=== PATIENT | male | born 1955 | race Caucasian/White ===

== ENCOUNTER 2022-12-24 17:12 | Outpatient (CLI) | payer MEDICARE, SELFPAY ==
[2022-12-24 17:08] LABS: Abs Immature Grans 0.04 10^3/uL (0.0-0.06); Absolute Basophil Count 0.04 10^3/uL (0.0-0.2); Absolute Eosinophil Count 0.11 10^3/uL (0.0-0.7); Absolute Lymphocyte Count 1.84 10^3/uL (1.2-3.4); Absolute Monocyte Count 0.93 10^3/uL (0.1-0.8); Absolute Neutrophil Count 6.56 10^3/uL (1.2-6.7); Basophils % 0.4; Eosinophils % 1.2; HGB 15.9 g/dL (13.5-17.5); Immature Grans % 0.4; Lymphocytes % 19.3; MCH 29.6 pg (27.0-33.0); MCHC 34.6 % (32.0-36.0); MCV 86 fL (80-95); MPV 9.2 fL (8.0-11.0); Monocytes % 9.8; Neutrophils % 68.9; Platelet Count 239 10^3/uL (130-400); RBC 5.38 10^6/uL (4.36-5.78); RDW 12.6 % (11.8-14.1); RDW-SD 38.7 fL; WBC 9.52 10^3/uL (4.4-10.8)
[2022-12-24 17:37] LABS: ALT 44 U/L (16-63); AST 33 U/L (15-37); Albumin 4.2 g/dL (3.4-5.0); Alkaline Phosphatase 82 U/L (46-116); Anion Gap 8.7 mmol/L (3-11); BUN 20 mg/dL (7-18); Bilirubin, Total 0.6 mg/dL (0.2-1.0); CO2 25.3 mmol/L (21.0-32.0); CREATININE 1.3 mg/dL (0.70-1.30); Calcium 9.4 mg/dL (8.5-10.1); Chloride 106 mmol/L (98-107); Estimated GFR 59.84 (mL/min/1.73m2); Glucose 104 mg/dL (74-106); Potassium 3.9 mmol/L (3.5-5.1); Sodium 140 mmol/L (136-145); Total Protein 7.8 g/dL (6.4-8.2)
== END 2022-12-24 17:13 | disposition home or self-care (01) ==
LOC: LBO 17:12
PROVIDERS: Visit Provider Physician Assistant Medical
DX: M54.50 Low back pain, unspecified (principal); M79.604 Pain in right leg
CPT/HCPCS: 36415; 80053; 85025

== ENCOUNTER 2022-12-24 17:13 | Outpatient (CLI) | payer MEDICARE, SELFPAY ==
--- NOTE | 2022-12-24 | DI.RAD_ITS ---
Exam(s) XR LUMBAR SPINE COMPLETE EXAM: XR LUMBAR SPINE COMPLETE CLINICAL HISTORY: LOW BACK PAIN M54.50. TECHNIQUE: 2D digital imaging was performed of the lumbar spine. Five images were obtained. AP, la teral, right oblique, left oblique and L5-S1 spot views were obtained. COMPARISON: No exams were available for comparison FINDINGS: BONES: No fracture or destructive lesion. There are anterior osteophytes seen at multiple levels incl uding a bridging osteophyte seen anteriorly at L1-L2. No facet hypertrophy identified. There is a tra nsitional lumbosacral vertebral body. DISKS: The disc heights are well maintained. ALIGNMENT: Lumbar spinal alignment is within normal limits. No spondylolysis or spondylolisthesis. SOFT TISSUE: Normal. IMPRESSION: 1. 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 2. No acute abnormality. DATA REPOSITORY: RADIATION DOSE DELIVERED:
--- NOTE | 2022-12-24 17:41 | DI.VRAD_ITS ---
PROCEDURE INFORMATION: Exam: XR Lumbosacral Spine Exam date and time: 12/24/2022 17:05 Age: 67 years old Clinical indication: Other: Low back pain TECHNIQUE: Imaging protocol: Radiologic exam of the lumbosacral spine. Views: 4 or 5 views. COMPARISON: No relevant prior studies available. FINDINGS: Bones/joints: No acute fracture or subluxation. [id number] multilevel degenerative changes with relative preservation of the disc spaces. The final lumbar vertebral body appears transitional more so on the left. Soft tissues: Unremarkable. Vasculature: Atherosclerosis. IMPRESSION: 1. No acute bony pathology. 2. Degenerative changes. Dictated and Authenticated by: Lillian Cobos MD. Ordering:GOLD Purdy MD
== END 2022-12-24 17:33 ==
LOC: DI 17:13
PROVIDERS: Visit Provider Physician Assistant Medical
DX: M54.59 Other low back pain (principal); M48.16 Ankylosing hyperostosis [Forestier], lumbar region
CPT/HCPCS: 36415; 80053; 72110; 85025

== ENCOUNTER 2022-12-26 01:46 | Outpatient (CLI) | payer MEDICARE, SELFPAY ==
--- NOTE | 2022-12-26 | DI.US_ITS ---
Exam(s) US LOWER EXTREMITY VENOUS RT EXAM: US LOWER EXTREMITY VENOUS RT CLINICAL HISTORY: RT LEG PAIN, M79.604,S/P SURGERY,? DVT TECHNIQUE: Right lower extremity venous ultrasound performed using grayscale, color-flow, and spectr al Doppler analysis. COMPARISON: No exams were available for comparison FINDINGS: The right common femoral, femoral and popliteal veins demonstrate normal compressibility, augmentatio n, and color Doppler. The posterior tibial veins are patent. The saphenofemoral junction is unremark able. There is no evidence of a Almanza cyst. The soft tissues are unremarkable. IMPRESSION: No evidence of a right lower extremity DVT. DATA REPOSITORY:
== END 2022-12-26 02:06 ==
LOC: DI 01:46
PROVIDERS: Visit Provider Physician Assistant Medical
DX: M79.661 Pain in right lower leg (principal); Z98.890 Other specified postprocedural states
CPT/HCPCS: 93971

== ENCOUNTER 2024-05-22 11:59 | Emergency (ER) | payer MEDICARE, SELFPAY ==
--- NOTE | 2024-05-22 12:00 | RT.EKG_ITS ---
APPROVED REPORT Exam: Resting ECG Reason for Exam: chest tightness Patient Location: E HR:85 bpm ECG Measurements Heart Rate 85 AXIS MS 158 P 56 QRSd 89 QRS -61 QT 347 T 13 QTc 414 Conclusion Sinus rhythm. 85 no stemi
[2024-05-22 12:09] VITALS: BP 119/71; PULSE 97; RESP 15; TEMP 37; O2SAT 96
--- NOTE | 2024-05-22 12:45 | DI.RAD_ITS ---
Exam(s) XR PORTABLE CHEST AP EXAM: XR PORTABLE CHEST AP CLINICAL HISTORY: shortness of breath, covid TECHNIQUE: 2D digital imaging was performed of the chest. One image was obtained. An AP view was ob tained. COMPARISON: No exams were available for comparison FINDINGS: MEDIASTINUM: Normal. HEART: Normal. PULMONARY VASCULATURE: Normal. LUNGS: Clear. PLEURAL SPACE: No pleural effusion or pneumothorax. BONE:Within normal limits for the patient's age. OTHER FINDINGS:There is a rounded density projected over the lower central right lung field which may represent a nipple shadow. If clinically indicated, a repeat AP view with nipple markers may be obt ained. IMPRESSION: No acute pulmonary findings. DATA REPOSITORY: RADIATION DOSE DELIVERED:
[2024-05-22] MEDS: Normal Saline 1,000 ML 1000 ML IV (13:17)
[2024-05-22 13:23] LABS: Abs Immature Grans 0.03 10^3/uL (0.0-0.06); Absolute Basophil Count 0.01 10^3/uL (0.0-0.2); Absolute Eosinophil Count 0.13 10^3/uL (0.0-0.7); Absolute Lymphocyte Count 0.86 10^3/uL (1.2-3.4); Absolute Neutrophil Count 3.82 10^3/uL (1.2-6.7); Basophils % 0.2 %; Eosinophils % 2.3 %; HCT 43.5 % (40.0-50.0); HGB 14.9 g/dL (13.5-17.5); Immature Grans % 0.5 %; Lymphocytes % 15.2 %; MCH 30.4 pg (27.0-33.0); MCHC 34.3 % (32.0-36.0); MCV 89 fL (80-95); MPV 9.4 fL (8.0-11.0); Monocytes % 14.2 %; Neutrophils % 67.6 %; Platelet Count 184 10^3/uL (130-400); RDW 12.7 % (11.8-14.1); RDW-SD 41.7 fL; WBC 5.65 10^3/uL (4.4-10.8)
[2024-05-22 13:41] LABS: ALT 78 U/L (16-63); AST 41 U/L (15-37); Albumin 3.4 g/dL (3.4-5.0); Alkaline Phosphatase 92 U/L (46-116); BUN 16 mg/dL (7-18); Bilirubin, Total 0.43 mg/dL (0.2-1.0); CREATININE 1.3 mg/dL (0.70-1.30); Calcium 8.9 mg/dL (8.5-10.1); Chloride 104 mmol/L (98-107); Glucose 115 mg/dL (74-106); Potassium 3.9 mmol/L (3.5-5.1); Sodium 139 mmol/L (136-145); Total Protein 7.1 g/dL (6.4-8.2)
[2024-05-22 13:44] LABS: Troponin I < 50 ng/L (< or =60)
[2024-05-22 13:50] LABS: Lipase 53 U/L (16-77)
[2024-05-22] MEDS: Ipratropium/Albuterol 4 GM 120 PUFF INH IH (13:50)
--- NOTE | 2024-05-22 14:13 | DI.VRAD_ITS ---
PROCEDURE INFORMATION: Exam: XR Chest Exam date and time: 05/22/2024 1:27 PM Age: 69 years old Clinical indication: Other: Shortness of breath, covid TECHNIQUE: Imaging protocol: Radiologic exam of the chest. Views: 1 view. COMPARISON: No relevant prior studies available. FINDINGS: Lungs: Unremarkable. No consolidation. Pleural spaces: Unremarkable. No pleural effusion. No pneumothorax. Heart/Mediastinum: Unremarkable. No cardiomegaly. Bones/joints: Mild degenerative changes of the osseous structures. IMPRESSION: No acute findings. Dictated and Authenticated by: Adolfo Flores MD. Ordering:TORITO Sheehan MD
--- NOTE | 2024-05-22 14:18 | ED.GENADUL_ITS ---
Discharge Plan Disposition Patient Disposition: Home Condition: Stable Discharge Details Clinical Impression: COVID-19 Primary Care Provider: Rajwinder Dunbar ED Provider: Sissy Kincaid Home Meds and New Rx's Prescriptions: New prednisone 20 mg tablet 40 mg PO ONCE Qty: 10 0RF No Action rosuvastatin 20 mg capsule, sprinkle 20 mg PO DAILY ezetimibe 10 mg tablet 10 mg PO DAILY clopidogrel 75 mg tablet 75 mg PO DAILY aspirin 81 mg tablet,chewable 81 mg PO DAILY losartan 100 mg tablet 100 mg PO DAILY famotidine PO DAILY PRN (Reason: acid reflux) mecobalamin (vitamin B12) 1,000 mcg tablet,chewable 2,000 mcg PO DAILY omega 0-bwk-lno-fish oil [Fish Oil] 1,200 (144-216) mg capsule PO cholecalciferol (vitamin D3) [Vitamin D3] 50 mcg (2,000 unit) capsule 50 mcg PO DAILY Discharge Instructions Instructions: COVID-19 ED Additional Instructions: increased fluids prednisone daily as prescribed combivent every 6 hours as needed for shortness of breath recheck liver enzymes in a few weeks return earlier with new or worsening complaints Discharge Data Discharge Date/Time-TO BE ENTERED AT DEPARTURE: 05/22/24 14:35 HPI General Date/Time Provider Initiated Documentation: 05/22/24 12:45 . HPI Narrative: This 69-year-old male presents with report of COVID-19 for the past 2 weeks. States he was actually feeling significant improvement on Thursday and Thursday and then his symptoms began to worsen throughout this week. He denies any fever or chills. He feels fatigued short of breath and has chest tightness. He denies any calf pain or swelling, recent flights, surgeries, long drives. He does not any hemoptysis. Related Data Home Medications ?Medication ?Instructions ?Recorded ?Confirmed aspirin 81 mg chewable tablet 81 mg PO DAILY 05/22/24 05/22/24 cholecalciferol (vitamin D3) 50 50 mcg PO DAILY 05/22/24 05/22/24 mcg (2,000 unit) capsule (Vitamin D3) clopidogrel 75 mg tablet 75 mg PO DAILY 05/22/24 05/22/24 ezetimibe 10 mg tablet 10 mg PO DAILY 05/22/24 05/22/24 famotidine PO DAILY PRN acid reflux 05/22/24 losartan 100 mg tablet 100 mg PO DAILY 05/22/24 05/22/24 mecobalamin (vitamin B12) 1,000 2,000 mcg PO DAILY 05/22/24 05/22/24 mcg chewable tablet omega 0-wnx-qbj-fish oil 1,200 mg cap PO 05/22/24 (144 mg-216 mg) capsule (Fish Oil) prednisone 20 mg tablet 40 mg (2 x 20 mg) PO ONCE #10 tabs 05/22/24 rosuvastatin 20 mg sprinkle capsule 20 mg PO DAILY 05/22/24 05/22/24 Previous Rx's ?Medication ?Instructions ?Recorded prednisone 20 mg tablet 40 mg (2 x 20 mg) PO ONCE #10 tabs 05/22/24 Allergies Allergy/AdvReac Type Severity Reaction Status Date / Time No Known Allergies Allergy Unverified 05/22/24 12:11 General Stated Complaint: RespSymp GLADYS: 3 Exam Narrative Exam Narrative: 69-year-old male in no acute distress, alert and oriented x 4, no respiratory distress, lungs clear to auscultation cardiac rate rhythm regular, no calf swelling or tenderness distal pulses intact Course Vital Signs Vital signs: Vital Signs Temperature 37.0 C 05/22/24 12:09 Pulse 97 H 05/22/24 12:09 Respiratory Rate 15 05/22/24 12:09 Blood Pressure 119/71 05/22/24 12:09 Pulse Oximetry 96 05/22/24 12:09 Temperature 37.0 C 05/22/24 12:09 Temperature Source Tympanic 05/22/24 12:09 Pulse 97 H 05/22/24 12:09 Respiratory Rate 15 05/22/24 12:09 Respiratory Effort Normal 05/22/24 13:16 Respiratory Depth Normal 05/22/24 13:15 Blood Pressure 119/71 05/22/24 12:09 Blood Pressure Position Sitting 05/22/24 12:09 Pulse Oximetry 96 05/22/24 12:09 Oxygen Delivery Method Room Air 05/22/24 12:09 Oxygen Flow Rate 0 05/22/24 12:09 Pain Level 0 05/22/24 12:09 Lab/Test Results Lab/Test Results: Laboratory Tests Range/Units 05/22/24 13:10 WBC (4.4-10.8) 10^3/uL 5.65 RBC (4.36-5.78) 10^6/uL 4.90 Hgb (13.5-17.5) g/dL 14.9 Hct (40.0-50.0) % 43.5 MCV (80-95) fL 89 MCH (27.0-33.0) pg 30.4 MCHC (32.0-36.0) % 34.3 RDW (11.8-14.1) % 12.7 Plt Count (130-400) 10^3/uL 184 MPV (8.0-11.0) fL 9.4 Immature Gran % % 0.5 Neutrophils % % 67.6 Lymphocytes % % 15.2 Monocytes % % 14.2 Eosinophils % % 2.3 Basophils % % 0.2 Nucleated RBC % (0.0-0.3) % 0.0 Absolute Neutrophils (1.2-6.7) 10^3/uL 3.82 Absolute Lymphocytes (1.2-3.4) 10^3/uL 0.86 L Absolute Monocytes (0.1-0.8) 10^3/uL 0.80 Absolute Eosinophils (0.0-0.7) 10^3/uL 0.13 Absolute Basophils (0.0-0.2) 10^3/uL 0.01 Sodium (136-145) mmol/L 139 Potassium (3.5-5.1) mmol/L 3.9 Chloride (98-107) mmol/L 104 Carbon Dioxide (21.0-32.0) mmol/L 27.0 Anion Gap (3-11) mmol/L 8.0 BUN (7-18) mg/dL 16 Creatinine (0.70-1.30) mg/dL 1.3 Est GFR (CKD-EPI 2020) (mL/min/1.73m2) 59.10 Glucose (74-106) mg/dL 115 H Calcium (8.5-10.1) mg/dL 8.9 Total Bilirubin (0.2-1.0) mg/dL 0.43 AST (15-37) U/L 41 H ALT (16-63) U/L 78 H Alkaline Phosphatase (46-116) U/L 92 Troponin I (< or =60) ng/L < 50 Total Protein (6.4-8.2) g/dL 7.1 Albumin (3.4-5.0) g/dL 3.4 Lipase (16-77) U/L 53 Medical Decision Making This 69-year-old male presents with upper respiratory symptoms, benign exam, patient has symptoms likely consistent with bronchitis with a normal-appearing chest x-ray per radiology interpretation and my review. And diagnostic labs including troponin, EKG without evidence of ischemia or injury. Patient was given a dose of Combivent and prednisone. He will be treated empirically for bronchitis. No indication for antibiotics at this time, recheck in 48 hours recommended. Of note patient did have slightly elevated LFTs and will need to have this rechecked by his primary care physician in the next several weeks. Early return precautions reviewed and patient expressed understanding. No hypoxia vitals remained within normal limits. I did consider pulmonary embolism, hide very low suspicion clinically based on my clinical exam findings Quality:SDOH Health Related Social Needs: No Data to Display PFSH All Active Problems (Updated 05/22/24 @ 14:18 by ADELE Berger) COVID-19 (Acute) Social History Smoking/Tobacco Use Status: Never Smoking risk assessment performed?: Yes Alcohol Intake: never Drug use: Never Substance use type: does not use Housing: house Do you feel safe at home: Yes Do you feel safe in your relationship?: Yes
[2024-05-22] MEDS: Inhaler, Assist Device 1 EACH MC (14:29)
[2024-05-22 14:34] VITALS: BP 119/71; PULSE 97; RESP 15; TEMP 37; O2SAT 96
== END 2024-05-22 14:35 | disposition home or self-care (01) ==
PROVIDERS: Emergency Provider Physician Assistant; PCP Physician Assistant Medical
DX: U07.1 COVID-19 (principal); R06.02 Shortness of breath; R07.9 Chest pain, unspecified; R53.1 Weakness
CPT/HCPCS: 80053; 83690; 93005; 96360; 99284; 71045; 84484; 85025; 93010; 99283; J3490